=== PATIENT | female | born 2000 | race American Indian/Alaskan Native ===

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

== ENCOUNTER 2018-11-11 19:07 | Emergency (ER) | payer SELFPAY ==
[2018-11-11 20:19] LABS: Basophils % (Auto) 0.4 % (0.0-1.8); Eosinophils # (Auto) 0.1 K/mm3 (0.0-0.4); Eosinophils % (Auto) 1.9 % (0.0-4.3); Hematocrit 39.1 % (30.3-42.9); Hemoglobin 13.2 gm/dl (10.1-14.3); Lymphocytes # (Auto) 1.8 K/mm3 (1.2-5.4); Lymphocytes % (Auto) 37.4 % (13.4-35.0); Mean Corpuscular HGB Conc 34 % (30-34); Mean Corpuscular Volume 84 fl (79-97); Monocytes # (Auto) 0.5 K/mm3 (0.0-0.8); Monocytes % (Auto) 9.8 % (0.0-7.3); Platelet Count 215 K/mm3 (140-440); Red Blood Count 4.68 M/mm3 (3.65-5.03)
--- NOTE | 2018-11-11 20:29 | Emergency Department Report ---
ED General Adult HPI - General Chief complaint: Urogenital-Female Stated complaint: RT BREAST PAIN/N/V Time Seen by Provider: 11/11/18 20:03 Source: patient, RN notes reviewed Mode of arrival: Ambulatory Limitations: No Limitations - History of Present Illness Initial comments: This is a 18-year-old female. This patient is not known to this provider pr eviously. Patient presents to the ER today with primary complaint of nontraumatic right-sided chest wall and breast pain. The symptoms have been present for the past couple days. They do not radiate anywhere. They decrease with rest. The increased with walking and palpation. No fevers, chills, no exertional chest pain, no shortness of breath. Patient takes oral contraceptives, otherwise, indicates no DVT or pulmonary embolism risk factors. She has elias-umbilical cramping, but no abdominal pain. She reports 4 episodes of nonbloody, nonbilious emesis, that started approximately 16 hours ago. She is not nauseous now. She denies other complaints. -: Gradual, days(s) Radiation: non-radiation Quality: other Consistency: other Improves with: other Worsens with: other - Related Data Previous Rx's Medication Instructions Recorded Last Taken Type Ibuprofen [Motrin] 600 mg PO Q8H PRN #30 tablet 11/11/18 Unknown Rx Ondansetron [Zofran Odt] 4 mg PO Q8HR PRN #20 tab.rapdis 11/11/18 Unknown Rx Allergies Allergy/AdvReac Type Severity Reaction Status Date / Time No Known Allergies Allergy Verified 12/23/17 18:10 ED Review of Systems ROS: Stated complaint: RT BREAST PAIN/N/V Other details as noted in HPI Constitutional: denies: fever Eyes: denies: eye discharge ENT: denies: epistaxis Respiratory: denies: wheezing Cardiovascular: other (there is right-sided breast pain) Gastrointestinal: nausea, vomiting. denies: diarrhea, constipation, hematemesis, melena, hematochezia Genitourinary: denies: urgency, dysuria Musculoskeletal: denies: arthralgia Skin: denies: lesions Neurological: denies: weakness Psychiatric: anxiety ED Past Medical Hx - Past Medical History Previous Medical History?: No - Surgical History Past Surgical History?: No Additional Surgical History: right hand - Social History Smoking Status: Never Smoker Substance Use Type: None - Medications Home Medications: Home Medications Medication Instructions Recorded Confirmed Last Taken Type Ibuprofen [Motrin] 600 mg PO Q8H PRN #30 tablet 11/11/18 Unknown Rx Ondansetron [Zofran Odt] 4 mg PO Q8HR PRN #20 tab.rapdis 11/11/18 Unknown Rx ED Physical Exam - General Limitations: No Limitations General appearance: alert, in no apparent distress - Head Head exam: Present: atraumatic, normocephalic - Eye Eye exam: Present: normal appearance, EOMI. Absent: nystagmus - ENT ENT exam: Present: normal exam, normal orophraynx, mucous membranes moist, normal external ear exam - Neck Neck exam: Present: normal inspection, full ROM. Absent: tenderness, meningismus - Respiratory Respiratory exam: Present: normal lung sounds bilaterally, chest wall tenderness (chaperoned by nurse Karon Bailey), other (there is no redness, pus or streaking. There is no discrete abscesses. There is reproducible lateral thoracic wall pain. There are no vesicular lesions noted.). Absent: respiratory distress, wheezes, rales, rhonchi, stridor - Cardiovascular Cardiovascular Exam: Present: regular rate, normal rhythm, normal heart sounds. Absent: bradycardia, tachycardia, irregular rhythm, systolic murmur, diastolic murmur, rubs, gallop - GI/Abdominal GI/Abdominal exam: Present: soft. Absent: distended, tenderness, guarding, rebound, rigid, pulsatile mass - Extremities Exam Extremities exam: Present: normal inspection, full ROM, other (2+ pulses noted in the bilateral upper, lower extremities. Compartments soft. No long bony tenderness. The pelvis is stable.). Absent: pedal edema, joint swelling, calf tenderness - Back Exam Back exam: Present: normal inspection, full ROM. Absent: tenderness, CVA tenderness (R), CVA tenderness (L), paraspinal tenderness, vertebral tenderness - Neurological Exam Neurological exam: Present: alert, normal gait, other (Extraocular movements intact. Tongue midline. No facial droop. Facial sensation intact to light touch in the V1, V2, V3 distribution bilaterally. 5 and 5 strength in 4 e xtremities.. Sensation is intact to light touch in 4 extremities.). Absent: motor sensory deficit - Psychiatric Psychiatric exam: Present: normal affect, normal mood - Skin Skin exam: Present: warm, dry, intact, normal color. Absent: rash ED Course Vital Signs 11/11/18 11/11/18 11/11/18 19:32 20:14 20:43 Temperature 99.5 F Pulse Rate 72 Respiratory 18 16 16 Rate Blood Pressure 120/60 Blood Pressure [Left] O2 Sat by Pulse Oximetry 11/11/18 21:38 Temperature 98.7 F Pulse Rate 89 Respiratory 16 Rate Blood Pressure Blood Pressure 112/65 [Left] O2 Sat by Pulse 99 Oximetry - Reevaluation(s) Reevaluation #1: 11/11/18 21:23 Differential diagnosis, including but not limited to: Resolved nausea and vomiting, urinary tract infection, bacteriuria, cannabinoid hyperemesis syndrome, constipation, GERD, gastritis, , costochondritis, nonspecific breast Mass. Assessment and plan: 18-year-old female with 2 complaints Complaint #1, breast discomfort and question mass. The patient is afebrile with reassuring vital signs. Her exam is not consistent with pneumothorax, abscess, cellulitis, or vesicular lesions. She can follow up with her outpatient [facility] doctor for her breast discomfort. She can be medicated as needed for breast pain. Complaint #2, history of nausea and vomiting. The patient is not nauseous now. She is not vomiting now. She tolerated medications orally without difficulty. Screening laboratory studies unremarkable. She is clinically sober at this time. She states she does not smoke cannabis. When asked if she has secondhand exposure to marijuana, she pauses, laughs and giggles, and subsequently denies exposure to marijuana. The patient does not appear to have an emergent GI or medical condition at this time, and her history of nausea and vomiting can be managed expectantly. She endorses no urinary symptoms, initial urinalysis is contaminated. We have requested a clean catch sample. Reevaluation #2: 11/11/18 21:27 Not tachycardic, not hypoxic, perc negative Reevaluation #3: 11/12/18 00:20 Patient observed multiple times without difficulty. No active vomiting. Repeat clean catch urinalysis is not consistent with infection. Patient does not ap pear to have an acute medical leave from urgent condition at this time. She may be discharged to follow-up. ED Medical Decision Making - Lab Data Result diagrams: 11/11/18 19:49 11/11/18 19:49 Vital Signs 11/11/18 11/11/18 11/11/18 19:32 20:14 20:43 Temperature 99.5 F Pulse Rate 72 Respiratory 18 16 16 Rate Blood Pressure 120/60 - EKG Data -: EKG Interpreted by Me EKG shows normal: sinus rhythm Rate: normal - EKG Data When compared to previous EKG there are: previous EKG unavailable 11/11/18 21:25 This is a sinus bradycardia, 56 bpm, normal axis, normal intervals, motion artifact, no endorsement of chest pain, the EKG is not consistent with ST elevation myocardial infarction. There is no prior for comparison. - Radiology Data Radiology results: image reviewed interpreted by me: X-ray of the chest is negative for acute disease Critical care attestation.: If time is entered above; I have spent that time in minutes in the direct care of this critically ill patient, excluding procedure time. ED Disposition Clinical Impression: History of nausea and vomiting, Pain of right breast Disposition: [id number] TO HOME OR SELFCARE Is pt being admited?: No Does the pt Need Aspirin: No Condition: Stable Additional Instructions: Take the pain medication, nausea medication as needed/directed. Avoid secondhand exposure to smoke, tobacco, and marijuana. Avoid consumption of heavy, spicy foods. Follow-up with your primary care doctor within the next 2-3 weeks. Return to the emergency room right away with new, worsening or different symptoms, or symptoms not present on the initial emergency room evaluation. Cultures were sent today, and results will be available next 3-5 days, please have your primary care doctor contact the medical records department to obtain culture results. Prescriptions: Ibuprofen [Motrin] 600 mg PO Q8H PRN #30 tablet PRN Reason: Pain Ondansetron [Zofran Odt] 4 mg PO Q8HR PRN #20 tab.rapdis PRN Reason: Nausea Referrals: [facility] [Provider Group] - 3-5 Days
[2018-11-11] MEDS ORDERED: PEPCID PO ONE (20:36)
[2018-11-11] MEDS ORDERED: IBUPROFEN PO ONE (20:36)
[2018-11-11 20:50] LABS: Alanine Aminotransferase 11 units/L (7-56); Albumin 4.4 g/dL (3.9-5); BUN/Creatinine Ratio 18; Blood Urea Nitrogen 14 mg/dL (7-17); Calcium 9.4 mg/dL (8.4-10.2); Hemolysis Index 4
[2018-11-11 20:58] LABS: Bacteria,Urine 1+ /HPF (Negative); Bilirubin,Urine NEG (Negative); Blood,Urine LG (Negative); Color,Urine Amber (Yellow); Mucus,Urine 3+ /HPF
--- NOTE | 2018-11-11 21:42 | XRay Report ---
CHEST 2 VIEWS INDICATION / CLINICAL INFORMATION: chest wall pain. Nausea and vomiting. Right breast pain. COMPARISON: None available. FINDINGS: SUPPORT DEVICES: None. HEART / MEDIASTINUM: No significant abnormality. LUNGS / PLEURA: No significant pulmonary or pleural abnormality. No pneumothorax. ADDITIONAL FINDINGS: No significant additional findings. IMPRESSION: 1. No acute findings. Signer Name: Kevan Barth MD Signed: 11/11/2018 9:38 PM Workstation Name: [id number]
[2018-11-12 00:04] LABS: Amorphous Crystals,Urine Few; Bilirubin,Urine NEG (Negative); Blood,Urine NEG (Negative); Color,Urine Yellow (Yellow); Mucus,Urine 3+ /HPF; Protein,Urine <15 mg/dL mg/dL (Negative)
[2018-11-12 00:29] VITALS: BP 126/73
== END 2018-11-12 00:29 | disposition home or self-care (01) ==
LOC: ED 19:07
DX: N64.4 Mastodynia (principal); R11.2 Nausea with vomiting, unspecified; Z79.899 Other long term (current) drug therapy
CPT/HCPCS: 36415; 71046; 80053; 81001; 84703; 85025; 87086; 93005; 93010